=== PATIENT | female | born 1965 | race Caucasian/White ===

== ENCOUNTER 2020-08-01 10:12 | Emergency (ER) | payer OTHER ==
[~2020-08-01] VITALS: Ht 172.7 cm; Wt 90.7 kg
[~2020-08-01 10:12] MED LIST: ABILIFY 5 MG TAB5 M1; AUGMENTIN 875875 MG PO; CYMBALTA60 MG; FLONASE 0.05%50 MCG NASAL; HYDROCODON-ACE1 EA13; HYDROCODON-ACE1 EAC7 PO; NORCO 5-325 TA1 EACH PO; PERCOCET 5-3251 EACH PO; PHENERGAN 25 MG25 M1 PO; ZANAFLEX2 M1
[2020-08-01] MEDS ORDERED: MELOXICAM15 MG PO (10:25)
[2020-08-01] MEDS ORDERED: ZANAFLEX4 M1 PO (10:26)
[2020-08-01] MEDS ORDERED: VALTREX 500 MG500 M1 PO (10:26)
[2020-08-01] MEDS ORDERED: ADDERALL 20 MG20 MG PO (10:26)
[2020-08-01] MEDS ORDERED: PROZAC20 MG PO (10:26)
[2020-08-01] MEDS ORDERED: XANAX1 MG PO (10:26)
[2020-08-01] MEDS ORDERED: B12 ACTIVE1000 MCG PO (10:27)
[2020-08-01] MEDS ORDERED: UBRELVY50 MG PO (10:27)
[2020-08-01] MEDS ORDERED: AJOVY AUTO225 MG/1.5 SUBQ (10:27)
[2020-08-01] MEDS ORDERED: MAGNESIUM400 M1 PO (10:27)
[2020-08-01] MEDS ORDERED: VITAMIN D310 MCG PO (10:28)
[2020-08-01] MEDS ORDERED: IRON325 M1 PO (10:28)
[2020-08-01 11:08] LABS: ABSOLUTE BASOPHILS 0.1 thou/uL (0.0-0.2); ABSOLUTE LYMPHOCYTES 0.8 thou/uL (0.8-5.3); ABSOLUTE MONOCYTES 0.4 thou/uL (0.0-1.2); ABSOLUTE NEUTROPHILS 3.2 thou/uL (1.6-8.1); BASOPHILS 1.4 %; EOSINOPHILS 0.6 %; HEMATOCRIT 39.9 % (37.0-47.0); HEMOGLOBIN 12.8 gm/dL (12.0-15.0); LYMPHOCYTES 18.6 %; MCHC 32.2 g/dL (28.0-37.0); MCV 83.9 fL (80.0-100.0); MONOCYTES 9.3 %; NUCLEATED RBCS 0 /100WBC; PLATELET COUNT* 278 thou/uL (150-400); POLYS 70.1 %; RBC 4.75 mil/uL (4.20-5.00); RDW-CV 15.6 % (10.5-14.5); WBC 4.5 thou/uL (4.0-11.0)
[2020-08-01 11:13] LABS: CALCIUM 9.4 mg/dL (8.5-10.1); CREATININE 0.9 mg/dL (0.6-1.3); POTASSIUM 4.5 mmol/L (3.5-5.1)
[2020-08-01 11:18] LABS: ALBUMIN 4.2 g/dL (3.4-5.0); TOTAL BILIRUBIN 0.3 mg/dL (<0.1-1.0); TOTAL PROTEIN 7.5 g/dL (6.4-8.2)
[2020-08-01] MEDS ORDERED: MECLIZINE HCL25 M1 PO (12:02)
[2020-08-01 12:13] VITALS: BP 154/78
--- NOTE | 2020-08-02 13:42 | EKG ---
[place] [address] ELECTROCARDIOGRAM REPORT Name: HUYEN NEGRETE Room: [facility]#: [id number] Admission: 08/01/20 Attend Phys: Discharge: 08/01/20 Date of : 65 Date of Service: 08/01/20 1107 Report #: [id number] THIS REPORT FOR: //name// [facility] [place] ED Test Date: 2020-08-01 Test Time: 11:07:15 Pat Name: HUYEN NEGRETE Department: Room: Gender: Supervisor Marble: TDS : 1965 Requested By: Jignesh Barahona Order Number: [id number] MD: Daniel Trimble Measurements Intervals [place] Rate: 62 P: 34 SD: 140 QRS: -3 QRSD: 104 T: 46 QT: 438 QTc: 445 Interpretive Statements Sinus rhythm Compared to ECG 01/11/2008 05:59:26 No significant changes Electronically Signed On 08-02-2020 13:42:16 CDT by Daniel Trimble [email or web address] <ELECTRONICALLY SIGNED> By: Daniel Trimble MD, [facility] 08/02/20 1342 06 06 Daniel Trimble MD, FAC /EPI
== END 2020-08-01 12:14 | disposition home or self-care (01) ==
LOC: M.ERS 10:12
PROVIDERS: Emergency Medicine
DX: H81.10 Benign paroxysmal vertigo, unspecified ear (principal); Z88.1 Allergy status to other antibiotic agents; Z88.8 Allergy status to other drugs, medicaments and biological substances; Z90.710 Acquired absence of both cervix and uterus